=== PATIENT | male | born 1990 | race African-American/Black ===

== ENCOUNTER 2025-03-01 21:59 | Emergency (ER) | payer SELFPAY ==
[~2025-03-01] VITALS: Ht 190.5 cm; Wt 88.0 kg
[2025-03-01 22:14] VITALS: O2SAT 98
[2025-03-01] MEDS: CYCLOBENZAPRINE 10MG TABLET PO ONE (22:59)
[2025-03-01 23:00] VITALS: BP 131/83; PULSE 66; RESP 18; TEMP 37; O2SAT 98
[2025-03-01] MEDS: LIDOCAINE 5% PATCH TOP SCH (23:00)
[2025-03-01] MEDS: KETOROLAC 15MG/ML VIAL IM ONE (23:00)
[2025-03-01] MEDS ORDERED: NAPR-1176 MT (23:40)
[2025-03-01] MEDS ORDERED: LIDO-53 TP (23:40)
[2025-03-01] MEDS ORDERED: CYCL5TAB3 MT (23:40)
== END 2025-03-01 23:55 | disposition home or self-care (01) ==
LOC: ER 21:59
DX: M54.50 Low back pain, unspecified (principal); R51.9 Headache, unspecified; Z79.1 Long term (current) use of non-steroidal anti-inflammatories (NSAID); R07.89 Other chest pain
CPT/HCPCS: 99283; 96372; J1885